=== PATIENT | female | born 1945 | race Caucasian/White ===

== ENCOUNTER 2017-12-03 10:52 | Emergency (ER) | payer MEDICARE ==
[~2017-12-03] VITALS: Ht 157.5 cm; Wt 100.0 kg
[~2017-12-03 10:52] MED LIST: ALLEGRA ALLERGY60 MG PO; AMBIEN10 MG PO; AUGMENTIN875TAB PO; BABY ASPIRIN81 MG PO; CLARITIN RDT5 MG OR; COMBIVENT IN; DEPO-MEDROL80 MG/ML IM; DOXYCYCL HYC100 MG PO; ELAVIL; ESGI1 PO; ESGIC OR; FLONASE NASAL50 MCG; FOSAMAX70 MG PO; KLOR-CON 1010 ME1 PO; LIPITOR10 MG PO; MUCINEX600 MG PO; NEXIUM40 M1 PO; NORVASC OR; OSCAL 500/1 TAB OR; PREDNISONE20 MG PO; PROVENTIL0.083 % IN; SYMBICORT 80-4.5MCG; SYMBICORT1 AE1 IN; TOPROL XL PO; TRAMADOL HCL50 MG PO; ZITHROMAX250 MG PO; ZPAK PO
[2017-12-03 11:47] LABS: INFLUENZA A NONE DETECTED (NONE DETECT); INFLUENZA B NONE DETECTED (NONE DETECT)
[2017-12-03] MEDS ORDERED: DELTASONE20 MG PO (12:18)
[2017-12-03] MEDS ORDERED: ZPAK PO (12:18)
[2017-12-03 12:23] VITALS: BP 144/70
== END 2017-12-03 12:29 | disposition home or self-care (01) ==
LOC: ED 10:52
PROVIDERS: Emergency Medicine
DX: J02.9 Acute pharyngitis, unspecified (principal); I10 Essential (primary) hypertension; G03.1 Chronic meningitis; J45.909 Unspecified asthma, uncomplicated

== ENCOUNTER 2019-10-18 08:00 | Day surgery (SDC) | payer MEDICARE ==
[~2019-10-18] VITALS: Ht 154.9 cm; Wt 97.5 kg
[~2019-10-18 08:00] MED LIST changes: +ALEVE220 M2 PO; +ALLEGRA180 MG PO; +AMITRIPTYLIN100 MG PO; +CALCIUM 600+D31 TA1 PO; +DELTASONE20 MG PO; +FLONASE AL50 MCG/ACT; +LISINOP/HCTZ1 TA1 PO; +MAXALT-MLT10 MG PO; +METRONIDAZOL0.751 EX; +MONTELUKAST SOD10 MG PO; +PHENERGAN25 MG/TAB PO
[2019-10-18 09:28] VITALS: BP 120/69
== END 2019-10-18 09:45 | disposition home or self-care (01) ==
LOC: ENDO 08:00
PROVIDERS: ATTEND Surgery
PROC: 0DJD8ZZ Inspection of Lower Intestinal Tract, Via Natural or Artificial Opening Endoscopic (ICD-10-PCS; principal; 2019-10-18)
DX: Z12.11 Encounter for screening for malignant neoplasm of colon (principal); Z86.010 Personal history of colon polyps; Z80.0 Family history of malignant neoplasm of digestive organs